=== PATIENT | male | born 1960 | race Caucasian/White ===

== ENCOUNTER → 2017-05-04 | Outpatient (CLI) | payer BC ==
[~2017-05-04] MED LIST: ASPCH81X PO; ATEN-173 PO; ATOR-22 PO; CINN500T PO; GLC/500 PO; INSU1INJ33 SC; KETO10TA PO; LISI-789 PO; MULTCHW PO; OXYC-57 PO; PRLSR20 PO; TNR50 PO
--- NOTE | 2017-05-04 15:34 | DIAGNOSTIC IMAGING REPORT ---
CHEST 2 VIEWS ROUTINE CLINICAL HISTORY: Preoperative chest COMPARISON STUDY: 02/01/2014 FINDINGS: The cardiac and mediastinal contours are normal. There is no evidence of focal pulmonary consolidation. There is no evidence of failure. No pleural effusions are visualized.[ There is a 4 mm calcified granuloma within the right upper lung zone. IMPRESSION: No active disease in the chest. Electronically signed by: Jermaine Gold M.D. 05/04/2017 3:33 PM Dictated Date/Time: 05/04/2017 3:32 PM
[2017-05-04 15:37] LABS: BASO % 0.3 %; BASO ABS # 0.03 K/uL (0-0.2); EOS % 1.3 %; EOS ABS # 0.14 K/uL (0-0.5); HEMATOCRIT 41.4 % (42-52); HEMOGLOBIN 14.4 g/dL (14.0-18.0); IG# 0.05 K/uL (0.00-0.02); LYMPH % 38.8 %; LYMPH ABS # 4.32 K/uL (1.2-3.4); MEAN CELL VOLUME 91.8 fL (80-100); MEAN CORPUSCULAR HEMOGLOBIN 31.9 pg (25-34); MEAN CORPUSCULAR HGB CONC 34.8 g/dl (32-36); MEAN PLATELET VOLUME 11.1 fL (7.4-10.4); MONO % 5.1 %; MONO ABS # 0.57 K/uL (0.11-0.59); NEUT % 54.1 %; NEUT ABS # 6.01 K/uL (1.4-6.5); PLATELET COUNT 280 K/uL (130-400); RED CELL DISTRIBUTION WIDTH CV 12.5 % (11.5-14.5); RED CELL DISTRIBUTION WIDTH SD 41.8 fL (36.4-46.3); WHITE BLOOD COUNT 11.12 K/uL (4.8-10.8)
[2017-05-04 16:05] LABS: BLOOD UREA NITROGEN 14 mg/dl (7-18); CALCIUM 8.7 mg/dl (8.5-10.1); CARBON DIOXIDE 28 mmol/L (21-32); CREATININE 1.12 mg/dl (0.60-1.40); GLUCOSE 137 mg/dl (70-99); POTASSIUM 3.3 mmol/L (3.5-5.1); SODIUM 142 mmol/L (136-145)
== END | disposition home or self-care (01) ==
LOC: C.RAD 14:41
PROVIDERS: ATTEND Orthopaedic Surgery
DX: Z01.812 Encounter for preprocedural laboratory examination (principal); Z01.810 Encounter for preprocedural cardiovascular examination; Z01.818 Encounter for other preprocedural examination; M75.81 Other shoulder lesions, right shoulder

== ENCOUNTER → 2017-05-04 | Outpatient (CLI) | payer BC, OTHER ==
--- NOTE | 2017-05-04 12:28 | DIAGNOSTIC IMAGING REPORT ---
MRI THE RIGHT SHOULDER NO CONTRAST CLINICAL HISTORY: Right shoulder pain. COMPARISON STUDY: No previous studies for comparison. FINDINGS: Imaging was performed in the sagittal coronal and axial planes. There are no areas of marrow edema to indicate occult fracture or bone bruise. The bicipital tendon appears intact. There is mild supraspinatus tendinopathy. There are no findings to indicate a full-thickness rotator cuff tear. There is no evidence of pathologic muscular atrophy. No abnormal soft tissue masses are visualized. No labral tears are visualized. Mild degenerative changes within the AC joint. IMPRESSION: 1. Mild rotator cuff tendinopathy. No evidence of full-thickness tear. 2. There are mild degenerative changes within the AC joint. Electronically signed by: Jermaine Gold M.D. 05/04/2017 12:27 PM Dictated Date/Time: 05/04/2017 12:23 PM
== END | disposition home or self-care (01) ==
LOC: C.MRIBC 11:17
PROVIDERS: ATTEND Orthopaedic Surgery
DX: M75.91 Shoulder lesion, unspecified, right shoulder (principal)

== ENCOUNTER → 2017-05-16 | Day surgery (SDC) | payer BC ==
[2017-05-09 09:00] VITALS: Ht 172.7 cm; Wt 97.7 kg
[~2017-05-16] VITALS: Ht 172.7 cm; Wt 97.7 kg
[~2017-05-16] MED LIST changes: +ATROPINE SULFATE 0.1 MG/ML 5ML SYR IV PRN; +BUPIVACAINE 0.25% 30 ML VIAL ONE; +CEFAZOLIN 2000MG IV PUSH 15 ML IV SCH; -CINN500T PO; +DEXAMETHASONE SOD INJ 4 MG/ML VIAL ONE; +EpHEDrine SULFATE INJ 50 MG/ML AMP IV PRN; +EpINEphrine INJ 1MG/ML AMP 1 MG/ML AMP ONE; +FENTANYL CITRATE INJ 50 MCG/1 ML 2 ML VIAL IV PRN; +FENTANYL CITRATE INJ 50 MCG/1 ML 2 ML VIAL ONE; +HYDROmorphone INJ 1 MG/ML SYR IV PRN; +HydrALAZINE HCL 20 MG/ML VIAL IV. ONE; +HydrALAZINE HCL 20 MG/ML VIAL ONE; +LACTATED RINGER'S 1000ML 1,000 ML IV SCH; +LIDOCAINE HCL 2% 2 ML VIAL (20MG/ML) ONE; +METOCLOPRAMIDE HCL INJ 5 MG/ML 2 ML VIAL IV PRN; +MIDAZOLAM HCL 1 MG/ML 2ML VIAL ONE; -MULTCHW PO; +ONDANSETRON INJ 2 MG/ML 2 ML VIAL IV PRN; +ONDANSETRON INJ 2 MG/ML 2 ML VIAL ONE; +OXYCODONE/ACETAMINOPHEN 5-325 TAB PO PRN; +PROMETHAZINE HCL INJ 12.5 MG in SODIUM CHLORIDE 0.9% 50ML 50 ML IV PRN; +PROPOFOL IV EMULSION 10 MG/ML 20 ML VIAL IV ONE; +ROPIVACAINE 0.5% 5 MG/ML 30 ML VIAL ONE; +SODIUM CHLORIDE 0.9% 1000ML 1,000 ML IV SCH; -TNR50 PO
--- NOTE | 2017-05-16 06:37 | Discharge Instructions ---
Discharge Instructions Date of Service May 16, 2017. Visit Reason for Visit: Right Shoulder Inflammation Of Rotator Cuff Tendon Discharge Discharge Diagnosis / Problem: as above Discharge Goals Goal(s): Decrease discomfort, Improve function Activity Recommendations Activity Limitations: as noted below Anesthesia . Post Anesthesia Instructions: If you have had General Anesthesia or IV Sedation: * Do not drive today. * Resume driving when surgeon permits. * Do not make important decisions or sign legal documents today. * Call surgeon for: 1. Temperature elevations greater than 101 degrees F. 2. Uncontrollable pain. 3. Excessive bleeding. 4. Persistent nausea and vomiting. 5. Medication intolerance (nausea, vomiting or rash). * For nausea and vomiting use only clear liquids such as: tea, soda, bouillon until nausea subsides, then gradually increase diet as tolerated. * If you have any concerns or questions, call your surgeon's office. If physician is unavailable and it is an emergency, call 911 or go to the nearest emergency room. . Instructions / Follow-Up Instructions / Follow-Up follow instructions from our office, may shower in 48 hours, follow-up with Dr Chavira in 2 weeks Diet Recommendations Recommended Home Diet: no limitations, resume previous diet Pending Studies Studies pending at discharge: no Medical Emergencies . Who to Call and When: Medical Emergencies: If at any time you feel your situation is an emergency, please call 911 immediately. . Non-Emergent Contact Non-Emergency issues call your: Surgeon Call Non-Emergent contact if: wound has increased drainage, wound has increased redness . . "Provider Documentation" section prepared by Goyo Chavira. .
--- NOTE | 2017-05-16 10:59 | History & Physical Bridge - [place] ---
H&P Re-Evaluation Bridge Note: I have examined the patient, reviewed the History & Physical and in the interval since the performance of the History & Physical I have noted the following changes of clinical significance: No changes noted
--- NOTE | 2017-05-16 13:33 | [facility] Post Operative Brief Note ---
Immediate Operative Summary Operative Date May 16, 2017. Pre-Operative Diagnosis Left Shoulder Chronic Rotator Cuff Tendonitis Post-Operative Diagnosis same Procedure(s) Performed Right Shoulder Arthroscopy, Acromioplasty, Distal Clavicle Resection, Open Biceps Tenodesis Surgeon Dr. Damaso Chavira Latex Foam Worker Surgeon(s) 0 Estimated Blood Loss 5cc Findings Consistent with Post-Op Diagnosis Specimens none Anesthesia Type General Regional Complication(s) none Disposition Disposition: Recovery Room / PACU
[2017-05-16 14:48] VITALS: TEMP 36.2
[2017-05-16 15:34] VITALS: BP 126/91; PULSE 63; O2SAT 95
--- NOTE | 2017-05-16 15:41 | Anesthesia Progress Nt - [facility] ---
Anesthesia Post Op Note Date & Time May 16, 2017 at 15:40 Vital Signs Pain Intensity: 0 Vital Signs Past 12 Hours Date Time Temp Pulse Resp B/P (MAP) Pulse Ox O2 Delivery O2 Flow Rate FiO2 05/16/17 15:34 63 20 126/91 (103) 95 Room Air 05/16/17 14:48 36.2 64 18 154/77 (102) 97 Room Air 05/16/17 14:45 36.5 05/16/17 14:44 68 16 05/16/17 14:44 68 16 93 05/16/17 14:43 146/78 05/16/17 14:39 70 16 05/16/17 14:39 69 16 94 05/16/17 14:37 139/78 05/16/17 14:34 68 21 95 05/16/17 14:34 68 21 05/16/17 14:32 137/81 05/16/17 14:29 68 15 05/16/17 14:29 67 15 135/80 95 05/16/17 14:28 192/106 05/16/17 14:24 66 15 05/16/17 14:24 66 15 94 05/16/17 14:23 180/103 05/16/17 14:19 64 16 94 05/16/17 14:19 63 16 05/16/17 14:17 175/100 05/16/17 14:14 64 15 05/16/17 14:14 65 15 95 05/16/17 14:13 169/103 05/16/17 14:09 60 15 05/16/17 14:09 60 15 96 05/16/17 14:08 166/103 05/16/17 14:07 173/107 05/16/17 14:04 61 16 05/16/17 14:04 60 16 100 05/16/17 14:03 174/104 05/16/17 14:00 173/115 05/16/17 13:59 57 15 99 05/16/17 13:59 57 15 05/16/17 13:58 182/107 05/16/17 13:54 63 17 100 05/16/17 13:54 64 17 05/16/17 13:53 150/87 05/16/17 13:49 55 17 99 05/16/17 13:49 54 17 05/16/17 13:48 154/80 05/16/17 13:44 53 16 05/16/17 13:44 53 16 99 05/16/17 13:43 138/77 05/16/17 13:39 54 16 98 05/16/17 13:39 53 16 05/16/17 13:38 141/95 05/16/17 13:36 152/82 05/16/17 13:34 36.3 51 16 152/82 99 Mask 6 05/16/17 12:24 63 05/16/17 12:24 63 25 99 05/16/17 12:23 185/100 05/16/17 12:20 63 05/16/17 12:20 64 17 99 05/16/17 12:19 62 05/16/17 12:19 62 17 99 05/16/17 12:18 176/107 05/16/17 12:14 63 20 99 05/16/17 12:14 63 05/16/17 12:13 165/97 05/16/17 12:12 65 05/16/17 12:12 66 17 99 05/16/17 12:07 60 15 177/98 99 05/16/17 12:07 60 05/16/17 12:03 173/94 05/16/17 12:02 61 13 05/16/17 12:02 60 05/16/17 11:58 192/96 05/16/17 11:57 62 05/16/17 11:57 62 20 186/99 100 05/16/17 11:52 63 0 05/16/17 10:29 36.9 61 18 161/91 (114) 98 Room Air Notes Mental Status: alert / awake / arousable, participated in evaluation Pt Amnestic to Procedure: Yes Nausea / Vomiting: adequately controlled Pain: adequately controlled Airway Patency, RR, SpO2: stable & adequate BP & HR: stable & adequate Hydration State: stable & adequate Anesthetic Complications: no major complications apparent Doing well, no complaints. DBP better controlled after IV Hydralazine. VSS.
--- NOTE | 2017-05-16 17:56 | OPERATIVE REPORT ---
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 POSTOPERATIVE DIAGNOSES: Same. PROCEDURE: Right shoulder diagnostic arthroscopy with limited debridement, distal clavicle resection, acromioplasty and open subpec biceps tenodesis. SURGEON: Dr. Goyo Chavira. VETERINARY TOXICOLOGIST: None. ANESTHESIA: General with a right interscalene nerve block. COMPLICATIONS: None. CONDITION: Stable to PACU. INDICATIONS: Dc is a pleasant 56-year-old male who I did a left shoulder arthroscopy on back in 2013. He did very well with that. He elected to proceed with a right shoulder arthroscopy. His symptoms were similar and an MRI showed severe external impingement and AC joint arthritis. DESCRIPTION OF PROCEDURE: On 05/16/2017, he arrived at [facility] for the above procedure. He was seen in the preoperative holding and the operative extremity was identified and signed given a preoperative antibiotic and a right interscalene nerve block. He was taken back to the operating room, laid on the table in supine position and put under general anesthesia. He was then put into the beachchair position. The right shoulder was prepped and draped in sterile fashion. Time-out was done. The extremity was properly identified. A scope was introduced in the posterior portal. Diagnostic arthroscopy showed no cartilage damage to the humeral head or the glenoid. There was significant fraying of the anterior and superior labrum. The biceps tendon was very red and inflamed. The subscapularis, supraspinatus, infraspinatus, teres minor were all checked and intact. An anterior portal was made. A shaver was used to start a limited debridement of the intraarticular structures. The biceps tendon was arthroscopically tenotomized for later tenodesis. The scope was then put into the subacromial space. A lateral portal was made. A shaver was used to do a complete subacromial and subdeltoid bursectomy. An ablator was used to tease the coracoacromial ligament off the undersurface of the acromion and a 5-0 charis was used to complete an acromioplasty of a very large Bigliani type 3 acromion. He refused to remove any excess debris and the bursal side of the rotator cuff was examined extensively without evidence of tear. Attention was turned to the distal clavicle. Through the anterior portal, a shaver and ablator were used to skeletonize the distal clavicle. A 5-0 charis was then used to resect the distal 7 mm from the clavicle. Complete resection was checked under direct visualization. Final diagnostic arthroscopy showed no additional pathology. Arthroscopic instruments removed from the shoulder and attention was turned to an open biceps tenodesis. A small incision was made over the inferior border of the pectoralis major. Dissection was taken down through the fascia and the long head of the biceps tendon was delivered out of the wound. The tendon was then whip stitched at the anticipated level of tenodesis and the remainder of the tendon was discarded. A 7 mm hole was drilled in the biceps groove and the biceps tendon was tenodesed with an Arthrex biceps button that was passed through the posterior cortex in a tension slide technique to deliver the tendon into the 7 mm hole. This gave good fixation. The wound was then irrigated, closed with 3-0 Vicryl and running 3-0 Monocryl. Steri-strips were placed. Portal sites were closed with 3-0 nylon. He was then placed in a soft compressive dressing, extubated, transferred to a [facility] and taken to the postanesthesia care unit in stable condition. He tolerated the procedure well. I attest to the content of the Intraoperative Record and any orders documented therein. Any exception s are noted below.
== END | disposition home or self-care (01) ==
LOC: X.SURG 10:17
PROVIDERS: ATTEND Orthopaedic Surgery
DX: M75.41 Impingement syndrome of right shoulder (principal); M75.21 Bicipital tendinitis, right shoulder; M19.011 Primary osteoarthritis, right shoulder; K21.9 Gastro-esophageal reflux disease without esophagitis; E11.9 Type 2 diabetes mellitus without complications; I10 Essential (primary) hypertension; E66.9 Obesity, unspecified; F17.200 Nicotine dependence, unspecified, uncomplicated; E78.5 Hyperlipidemia, unspecified; E78.00 Pure hypercholesterolemia, unspecified; Z90.89 Acquired absence of other organs; Z82.49 Family history of ischemic heart disease and other diseases of the circulatory system; Z82.3 Family history of stroke; Z80.42 Family history of malignant neoplasm of prostate; Z79.4 Long term (current) use of insulin; Z79.84 Long term (current) use of oral hypoglycemic drugs